=== PATIENT | female | born 2000 | race African-American/Black ===

== ENCOUNTER 2021-08-10 16:58 | Emergency (ER) | payer OTHER ==
[~2021-08-10] VITALS: Ht 172.7 cm; Wt 92.0 kg
[2021-08-10] MEDS ORDERED: ACETAMINOPHEN 500 MG TABLET PO ONE ×2 (19:00)
[2021-08-10 20:31] VITALS: BP 128/68
== END 2021-08-10 20:32 | disposition short-term general hospital (02) ==
LOC: EMS 17:00
DX: R45.850 Homicidal ideations (principal)
CPT/HCPCS: 99285; Z7502; Z7610